=== PATIENT | female | born 1990 | race Caucasian/White ===

== ENCOUNTER 2023-04-25 22:12 | Inpatient (IN) ==
[2023-04-25] MEDS ORDERED: Lidocaine 1% VIAL 10 MG/ML 30 ML VIAL INJ PRN (23:28)
[2023-04-26 00:31] LABS: ABS Eosinophils 0.1 10^3/uL (0.0-0.5); ABS Monocytes 0.5 10^3/uL (0.0-0.9); ABS Neutrophils 8.1 10^3/uL (1.5-7.6); ABS Nucleated RBC 0.01 10^3/ul; Eosinophil % 0.7 %; Hematocrit 35.3 % (35-45); Hemoglobin 12.4 g/dL (11.5-14.3); Lymphocyte % 18.3 %; Mean Corpuscular Hemoglobin 30.4 pg (27-33); Mean Corpuscular Hgb Conc 35.2 g/dL (31-36); Mean Corpuscular Volume 86.6 fL (80-97); Mean Platelet Volume 9.7 fL (7.5-11.2); Nucleated Red Blood Cells % 0.1 /100 WBC (0.0-0.4); Platelet Count 169 10^3/uL (150-450); Red Blood Count 4.08 10^6/uL (3.63-4.92); Red Cell Distribution Width 12.5 % (12-17); White Blood Count 10.7 10^3/uL (3.8-11.8)
[2023-04-26 00:36] LABS: Urine Appearance Clear; Urine Bilirubin Negative (Negative); Urine Blood 2+ (Negative); Urine Color Straw; Urine Glucose Negative (Negative); Urine Ketones Negative (Negative); Urine Nitrite Negative (Negative); Urine Protein Negative (Negative); Urine Specific Gravity 1.004 (1.002-1.030); Urine Urobilinogen Negative (Negative)
[2023-04-26 00:45] LABS: Urine Bacteria 1+ (Absent); Urine Red Blood Cell Trace(0-2/hpf) (Absent); Urine Squamous Epithelial Cell Present (Absent); Urine White Blood Cell Trace(0-5/hpf) (Absent)
[2023-04-26 00:51] LABS: Urine Benzodiazepine Screen None Detected (None Detect); Urine Cannabinoids Screen None Detected (None Detect); Urine Opiates Screen None Detected (None Detect)
[2023-04-26 01:00] LABS: Urine Creatinine Concentration 27.34 mg/dL (20.00-320.00); Urine TP Creat Ratio 0.21 mg/mg
[2023-04-26 01:03] LABS: Albumin 3.4 g/dL (3.2-5.2); Calcium 8.6 mg/dL (8.6-10.3); Potassium 3.9 mmol/L (3.5-5.0); Total Bilirubin 0.2 mg/dL (0.2-1.0)
[2023-04-26 01:09] LABS: Albumin/Globulin Ratio 1.4 (1-3); Creatinine, Serum 0.61 mg/dL (0.51-0.95); Globulin 2.4 g/dL (2-4); Total Protein 5.8 g/dL (6.4-8.9); eGFR CKD-EPI 119.5 (>60)
[2023-04-26] MEDS ORDERED: Lactated Ringers 1000 ml BAG 1,000 ML IV ONE ×2 (12:40→14:22)
[2023-04-26] MEDS ORDERED: Lidocaine 1.5% EPI 1:200,000 30 ML SDV ONE (13:23)
[2023-04-26] MEDS ORDERED: OBEPIDURAL (200 ML) 200 ML EPIDURAL ONE (13:23)
[2023-04-26] MEDS ORDERED: Phenylephrine 40 mcg/mL 10mL (400mcg) SYRINGE IV PUSH PRN ×2 (14:22)
[2023-04-26] MEDS ORDERED: Sodium Citrate/Citric Acid LIQ 15 ML UDC PO PRN (14:22)
[2023-04-26] MEDS ORDERED: Lactated Ringers 1000 ml BAG 500 ML IV PRN (14:22)
[2023-04-26] MEDS ORDERED: Lactated Ringers 1000 ml BAG 1,000 ML IV SCH ×2 (15:00→22:00)
[2023-04-26] MEDS ORDERED: OBEPIDURAL (200 ML) 200 ML EPIDURAL SCH (15:00)
[2023-04-26 15:20] LABS: Urine Appearance Cloudy; Urine Bilirubin Negative (Negative); Urine Blood Negative (Negative); Urine Color Yellow; Urine Glucose Negative (Negative); Urine Ketones 1+ (Negative); Urine Nitrite Negative (Negative); Urine Protein 2+(100 mg/dL) (Negative); Urine Specific Gravity 1.023 (1.002-1.030); Urine Urobilinogen Negative (Negative)
[2023-04-26 15:24] LABS: Urine Bacteria Absent (Absent); Urine Red Blood Cell 3+(>10/hpf) (Absent); Urine Squamous Epithelial Cell Present (Absent); Urine White Blood Cell Trace(0-5/hpf) (Absent)
[2023-04-26] MEDS ORDERED: Oxytocin 10 UNITS/ML 1 ML VIAL IM ONE (21:47)
[2023-04-26] MEDS ORDERED: Glycerin ADULT 2.4 gm SUPP PR PRN (21:47)
[2023-04-26] MEDS ORDERED: Dibucaine 1% OINT 28.35 GM TUBE PR PRN (21:47)
[2023-04-26] MEDS ORDERED: Witch Hazel PAD JAR TOPICAL PRN (21:47)
[2023-04-26] MEDS ORDERED: ceFOXitin 2 GM IVPREMIX 2 GM/50 ML BAG IVPB ONE (22:37)
[2023-04-27 07:12] LABS: ABS Basophils 0.1 10^3/uL (0.0-0.1); ABS Lymphocytes 2.3 10^3/uL (1.0-4.8); ABS Monocytes 0.9 10^3/uL (0.0-0.9); ABS Neutrophils 14.5 10^3/uL (1.5-7.6); Eosinophil % 0.1 %; Hematocrit 28.6 % (35-45); Hemoglobin 9.9 g/dL (11.5-14.3); Lymphocyte % 13.1 %; Mean Corpuscular Hemoglobin 30.5 pg (27-33); Mean Corpuscular Hgb Conc 34.7 g/dL (31-36); Mean Corpuscular Volume 87.8 fL (80-97); Mean Platelet Volume 9.8 fL (7.5-11.2); Platelet Count 182 10^3/uL (150-450); Red Blood Count 3.26 10^6/uL (3.63-4.92); Red Cell Distribution Width 12.4 % (12-17); White Blood Count 17.9 10^3/uL (3.8-11.8)
[2023-04-27] MEDS ORDERED: Oxytocin 10 UNITS/ML 1 ML VIAL ONE (15:47)
[2023-04-29 08:37] VITALS: BP 124/81
== END 2023-04-29 13:58 | disposition home or self-care (01) | DRG 768 ==
LOC: MCHOBOUT 22:12 → MCHOB 23:28
PROVIDERS: ADMIT Midwife; ATTEND Midwife